=== PATIENT | male | born 1950 | race Hispanic/Latino ===

== ENCOUNTER 2021-01-09 11:36 | Observation (INO) | payer OTHER ==
[~2021-01-09] VITALS: Ht 170.2 cm; Wt 51.4 kg
[2021-01-09 12:04] LABS: APPEARANCE,URINE Clear (CLEAR); BILIRUBIN,URINE Negative (NEGATIVE); COLOR,URINE Yellow (YELLOW); GLUCOSE, URINE (UA) Negative (NEGATIVE); KETONES,URINE Negative (NEGATIVE); LEUKOCYTE ESTERASE ,URINE Negative (NEGATIVE); NITRATE,URINE Negative (NEGATIVE); OCCULT BLOOD,URINE Negative (NEGATIVE); PROTEIN,URINE Negative (NEGATIVE); UROBILINOGEN,URINE 0.2 mg/dL (0.2-1.0)
[2021-01-09 12:06] LABS: BASOPHILS % (AUTO) 0.5 % (0.0-5.0); EOSINOPHILS % (AUTO) 4.2 % (0.0-8.0); HEMATOCRIT 28.2 % (42-54); LYMPHOCYTES % (AUTO) 15.8 % (21.0-51.0); MEAN CORPUSCULAR HEMOGLOBIN 29.5 pg (27.0-33.0); MEAN CORPUSCULAR HGB CONC 35.5 g/dL (32.0-36.0); MEAN CORPUSCULAR VOLUME 83.2 fL (79-99); MONOCYTES % (AUTO) 9.5 % (3.0-13.0); NEUTROPHILS % (AUTO) 69.3 % (40.0-77.0); PLATELET COUNT (AUTO) 224 K/uL (130-400); RED BLOOD CELL COUNT(AUTO) 3.39 MIL/uL (4.50-6.20); RED CELL DISTRIBUTION WIDTH 14.3 % (11.0-15.5); WHITE BLOOD COUNT (AUTO) 8.1 K/uL (4.8-10.8)
[2021-01-09 12:15] LABS: CREATININE 0.9 mg/dL (0.5-1.5); POTASSIUM 4.1 mmol/L (3.5-5.1)
[2021-01-09 12:16] LABS: INR 1.04 (0.85-1.15); PROTHROMBIN TIME 11.3 SEC (9.6-11.6)
[2021-01-09 12:17] LABS: PARTIAL THROMBOPLASTIN TIME 31.1 SEC (26.3-35.5)
[2021-01-09 12:19] LABS: ALBUMIN 2.8 g/dL (3.5-5.0); BILIRUBIN,TOTAL 0.7 mg/dL (0.2-1.0)
[2021-01-09 12:33] LABS: B-TYPE NATRIURETIC PEPTIDE 164 pg/mL (0-100)
[2021-01-09] MEDS ORDERED: ACETAMINOPHEN 325 MG TAB PO PRN (15:30)
[2021-01-09] MEDS ORDERED: ONDANSETRON 4MG INJ IVP PRN (15:30)
[2021-01-09 15:54] LABS: PROTEIN,URINE RANDOM 10.9 mg/dL (0-11.9)
[2021-01-09 16:14] LABS: AMMONIA 12 umol/L (11-32); CHOLESTEROL 117 mg/dL (<200); HDL CHOLESTEROL 92 mg/dL (29-71); LDL DIRECT 64 mg/dL (0-99); TRIGLYCERIDES 174 mg/dL (30-200)
[2021-01-09] MEDS ORDERED: ACETAMINOPHEN 325 MG TAB ONE (16:56)
[2021-01-09 21:00] LABS: CREATININE 0.8 mg/dL (0.5-1.5); POTASSIUM 4.2 mmol/L (3.5-5.1)
[2021-01-09] MEDS: FAMOTIDINE 20MG TAB PO SCH (21:00)
[2021-01-09] MEDS: ATORVASTATIN 20 MG TABLET PO SCH (21:00)
[2021-01-09] MEDS ORDERED: ATORVASTATIN 20 MG TABLET ONE (21:13)
[2021-01-09] MEDS ORDERED: FAMOTIDINE 20MG TAB ONE (21:13)
[2021-01-10 05:31] LABS: BASOPHILS % (AUTO) 0.7 % (0.0-5.0); EOSINOPHILS % (AUTO) 3.4 % (0.0-8.0); HEMATOCRIT 28.4 % (42-54); LYMPHOCYTES % (AUTO) 18.7 % (21.0-51.0); MEAN CORPUSCULAR HEMOGLOBIN 29.8 pg (27.0-33.0); MEAN CORPUSCULAR HGB CONC 35.2 g/dL (32.0-36.0); MEAN CORPUSCULAR VOLUME 84.5 fL (79-99); MONOCYTES % (AUTO) 11.4 % (3.0-13.0); NEUTROPHILS % (AUTO) 65.2 % (40.0-77.0); PLATELET COUNT (AUTO) 220 K/uL (130-400); RED BLOOD CELL COUNT(AUTO) 3.36 MIL/uL (4.50-6.20); RED CELL DISTRIBUTION WIDTH 14.7 % (11.0-15.5); WHITE BLOOD COUNT (AUTO) 6.7 K/uL (4.8-10.8)
[2021-01-10 05:39] LABS: HEMOGLOBIN A1C 5.4 % (4.0-6.0)
[2021-01-10 05:45] LABS: CREATININE 0.7 mg/dL (0.5-1.5); POTASSIUM 4.3 mmol/L (3.5-5.1)
[2021-01-10] MEDS: LEVOTHYROXINE 25 MCG TABLET PO SCH (06:30)
[2021-01-10] MEDS ORDERED: LEVOTHYROXINE 150 MCG TABLET ONE (07:20)
[2021-01-10 09:48] VITALS: BP 104/62
[2021-01-10] MEDS: FAMOTIDINE 20MG TAB PO SCH ×2 (10:08→19:47)
[2021-01-10] MEDS: FOLIC ACID 1 MG TABLET PO SCH (10:08)
[2021-01-10] MEDS: SUCRALFATE 1 GM TABLET PO SCH (10:08)
[2021-01-10] MEDS: THIAMINE HCL 100 MG TABLET PO SCH (10:08)
[2021-01-10 12:00] VITALS: BP 126/60
[2021-01-10] MEDS ORDERED: PHARMACY COMMUNICATION MISC PRN (13:15)
[2021-01-10] MEDS ORDERED: CHLORDIAZEPOXIDE HCL 25 MG CAP PO PRN (13:15)
[2021-01-10] MEDS ORDERED: LORAZEPAM 2 MG/ML 1 ML VIAL IVP PRN (13:15)
[2021-01-10] MEDS ORDERED: OMEP40CA21 PO (15:57)
[2021-01-10] MEDS ORDERED: SUCR1TAB2 PO (16:23)
[2021-01-10] MEDS ORDERED: LEVO25CA4 PO (16:23)
[2021-01-10] MEDS ORDERED: ICOS1CAP PO (16:23)
[2021-01-10] MEDS ORDERED: BRIM5DRO OP (16:39)
[2021-01-10] MEDS ORDERED: ACET1TAB25 PO (16:39)
[2021-01-10] MEDS ORDERED: CHOL500051 PO (16:39)
[2021-01-10] MEDS ORDERED: SIMV20TA2 PO (16:39)
[2021-01-10 17:35] VITALS: BP 134/65
[2021-01-10] MEDS: ATORVASTATIN 20 MG TABLET PO SCH (19:46)
[2021-01-10 20:04] VITALS: BP 116/50
[2021-01-11 00:08] VITALS: BP 117/56
[2021-01-11 04:08] VITALS: BP 123/62
[2021-01-11 04:45] LABS: HEMATOCRIT 30.2 % (42-54); MEAN CORPUSCULAR HEMOGLOBIN 28.9 pg (27.0-33.0); MEAN CORPUSCULAR HGB CONC 33.8 g/dL (32.0-36.0); MEAN CORPUSCULAR VOLUME 85.6 fL (79-99); PLATELET COUNT (AUTO) 223 K/uL (130-400); RED BLOOD CELL COUNT(AUTO) 3.53 MIL/uL (4.50-6.20); RED CELL DISTRIBUTION WIDTH 14.6 % (11.0-15.5); WHITE BLOOD COUNT (AUTO) 5.5 K/uL (4.8-10.8)
[2021-01-11 04:55] LABS: % IRON SATURATION 12.6 % (30-44)
[2021-01-11 04:57] LABS: CREATININE 0.7 mg/dL (0.5-1.5)
[2021-01-11] MEDS ORDERED: SUCRALFATE 1 GM TABLET PO PRN (05:00)
[2021-01-11 05:35] LABS: BAND NEUTROPHILS % (MANUAL) 1 % (0-2); EOSINOPHILS % (MANUAL) 3 % (1-6); LYMPHOCYTES % (MANUAL) 15 % (22-44); MONOCYTES % (MANUAL) 11 % (2-9); SEGMENTED NEUTROPHILS % 70 % (40-70)
[2021-01-11 05:36] LABS: MAN.DIFF COMMENT-IMPRESSION MANUAL DIFFERENTIAL
[2021-01-11 05:37] LABS: PLATELET MORPHOLOGY COMMENT ADEQUATE
[2021-01-11] MEDS: LEVOTHYROXINE 25 MCG TABLET PO SCH (06:28)
[2021-01-11 08:00] VITALS: BP 141/63
[2021-01-11] MEDS ORDERED: **HM** VASCEPA 1GM PO SCH (09:00)
[2021-01-11] MEDS ORDERED: PANTOPRAZOLE 40 MG TAB DR PO SCH (09:00)
[2021-01-11] MEDS ORDERED: **HM** VIT D3 125MCG PO SCH (09:00)
[2021-01-11] MEDS ORDERED: BRIMONIDINE TARTRATE 0.2% 5 ML BOTTLE OP SCH (09:00)
[2021-01-11] MEDS ORDERED: SIMVASTATIN 20 MG TABLET PO SCH (09:00)
[2021-01-11] MEDS ORDERED: NON-FORMULARY MEDICATION 1 EACH (Levothyroxine Sodium (Levothyroxine) 25 MCG) PO SCH (09:00)
[2021-01-11] MEDS ORDERED: TIMOLOL MALEATE 0.5% 5 ML BOTTLE OP SCH (09:00)
[2021-01-11] MEDS ORDERED: LISI10TA24 PO (09:30)
[2021-01-11] MEDS: SUCRALFATE 1 GM TABLET PO SCH (09:56)
[2021-01-11] MEDS: FOLIC ACID 1 MG TABLET PO SCH (09:56)
[2021-01-11] MEDS: THIAMINE HCL 100 MG TABLET PO SCH (09:56)
[2021-01-11 11:42] VITALS: BP 99/63
[2021-01-11 12:07] VITALS: BP 142/68
[2021-01-11 12:08] VITALS: BP_SYST 156; BP_SYST 182; BP_DIAS 85; BP_DIAS 89
[2021-01-11] MEDS ORDERED: COMPOUND IV MISC 1 EACH IVSOLN MISC PRN (13:00)
[2021-01-11] MEDS ORDERED: IRON SUCROSE COMPLEX 100 MG/5 ML VIAL IVP ONE (14:35)
[2021-01-11] MEDS ORDERED: FERS325 PO (16:10)
[2021-01-12] MEDS ORDERED: IRON SUCROSE COMPLEX 100 MG in 0.9%NACL 50ML 50 ML IV SCH (09:00)
== END 2021-01-11 17:08 | disposition home or self-care (01) ==
LOC: EDH 11:36 → INTOOBSV 13:09 → EDHIP 13:09 → 4BH 01-10 09:25
PROVIDERS: ADMIT Family Medicine; ATTEND Family Medicine
DX: I95.9 Hypotension, unspecified (principal); Z20.822 Contact with and (suspected) exposure to COVID-19; E87.1 Hypo-osmolality and hyponatremia; E87.8 Other disorders of electrolyte and fluid balance, not elsewhere classified; E78.5 Hyperlipidemia, unspecified; K21.9 Gastro-esophageal reflux disease without esophagitis; E03.9 Hypothyroidism, unspecified; I10 Essential (primary) hypertension; R42 Dizziness and giddiness; D64.9 Anemia, unspecified; N28.9 Disorder of kidney and ureter, unspecified; E78.00 Pure hypercholesterolemia, unspecified; Z72.89 Other problems related to lifestyle; Z79.899 Other long term (current) drug therapy
CPT/HCPCS: 36415 ×3; 70450; 71045; 76770; 80048 ×2; 80053; 80061 ×2; 81003; 82140; 82533; 82570; 83036; 83540; 83550; 83605; 83690; 83735; 83880 ×2; 83930; 83935; 84145; 84156; 84443; 84484 ×2; 85025 ×3; 85610; 85730; 87426; 87804 ×2; 87880; 93005; 96365; 97161; 97530; 99285; G0378 ×52; G8979; G8980; G8981; G8982; G8983; J1756; U0003

== ENCOUNTER → 2023-04-30 | Outpatient (CLI) | payer OTHER ==
[~2023-04-30] MED LIST: BRIM5DRO OP; CHOL500051 PO; FERS325 PO; ICOS1CAP PO; LEVO25CA4 PO; LISI10TA24 PO; OMEP40CA21 PO; SIMV-343 PO; SUCR1TAB2 PO
== END | disposition home or self-care (01) ==
LOC: RAH 08:50
PROVIDERS: ATTEND Otolaryngology
DX: K22.5 Diverticulum of esophagus, acquired (principal); K44.9 Diaphragmatic hernia without obstruction or gangrene; R13.10 Dysphagia, unspecified
CPT/HCPCS: 74220